=== PATIENT | female | born 1970 | race African-American/Black ===

== ENCOUNTER 2021-10-30 07:17 | Emergency (ER) | payer MEDICAID ==
[~2021-10-30] VITALS: Ht 165.1 cm; Wt 77.0 kg
[2021-10-30 08:00] VITALS: BP 179/112
[2021-10-30] MEDS ORDERED: ACETAMINOPHEN WITH CODEINE 300/30MG TABLET PO ONE (08:00)
[2021-10-30] MEDS ORDERED: TOPUD PO (09:38)
== END 2021-10-30 10:29 | disposition home or self-care (01) ==
LOC: ER 07:17
DX: M54.2 Cervicalgia (principal); I10 Essential (primary) hypertension
CPT/HCPCS: 99284